=== PATIENT | male | born 1950 | race Caucasian/White ===

== ENCOUNTER 2017-10-30 05:49 | Inpatient (IN) | payer MEDICARE, BC ==
[2017-10-30] MEDS ORDERED: SUGAMMADEX SODIUM 200 MG/2 ML VIAL IV (07:00)
[2017-10-30] MEDS ORDERED: METOPROLOL 5 MG INJ (07:00)
[2017-10-30] MEDS ORDERED: HEPARIN 1000 UNITS/NS (A-LINE) 0 ML (07:05)
[2017-10-30] MEDS ORDERED: IOHEXOL 300MG/ML 30 ML BTL (07:22)
[2017-10-30] MEDS ORDERED: FENTAnyl 50 MCG/ML VIAL ×2 (07:33→08:55)
[2017-10-30] MEDS ORDERED: MIDAZOLAM 1 MG/ML 2 ML INJ (07:34)
[2017-10-30] MEDS ORDERED: PROPOFOL 20 ML (07:35)
[2017-10-30] MEDS ORDERED: SUCCINYLCHOLINE CHLORIDE 100 MG/5 ML SYG IV (07:35)
[2017-10-30] MEDS ORDERED: LIDOCAINE 100 MG SYRINGE (07:38)
[2017-10-30] MEDS ORDERED: ROCURONIUM 50 MG INJ (07:53)
[2017-10-30] MEDS ORDERED: LIDOCAINE 2% (SDV) 5 ML INJ (07:53)
[2017-10-30] MEDS ORDERED: NA BICARBONATE 8.4% 50 ML SYG (07:53)
[2017-10-30] MEDS: HEPARIN 1000 UNITS/ML 10 ML INJ (08:52)
[2017-10-30] MEDS ORDERED: PHENYLephrine (100 MCG/ML) 5ML SYG (09:10)
[2017-10-30] MEDS ORDERED: HEPARIN 1000 UNITS/ML 10 ML INJ (09:22)
[2017-10-30] MEDS ORDERED: hydrALAzine 20 MG INJ (09:23)
[2017-10-30] MEDS: IOHEXOL 300MG/ML 150 ML BTL (09:45)
[2017-10-30] MEDS ORDERED: PROVENTIL HFA 6.7GM INHALER (10:46)
[2017-10-30] MEDS ORDERED: ALBUTEROL 0.083% (NEB) 2.5 MG/3 ML AMP (10:48)
[2017-10-30] MEDS ORDERED: hydrALAzine 20 MG INJ IV (12:30)
[2017-10-30] MEDS ORDERED: LORATADINE 10 MG TAB PO (14:30)
[2017-10-30] MEDS ORDERED: GLUCAGON 1 MG INJ IM (15:30)
[2017-10-30] MEDS ORDERED: DEXTROSE 50% 50 ML SYRINGE IV ×2 (15:30)
[2017-10-30] MEDS ORDERED: GLUCOSE GEL 15 GRAM TUBE BUCCAL (15:30)
[2017-10-30] MEDS ORDERED: GLUCOSE GEL 15 GRAM TUBE PO ×2 (15:30)
[2017-10-30] MEDS: morphine LIQ (10 MG/5 ML) CUP PO (15:31)
[2017-10-30] MEDS: INSULIN ASPART [NOVOLOG] 3 ML PEN SC ×2 (17:35→21:00)
[2017-10-30] MEDS: ACETAMINOPHEN 325 MG TAB PO (18:34)
[2017-10-30 19:02] LABS: ADD MAN DIFF? NO
[2017-10-30 19:06] LABS: BASOPHIL # 0.1 10^3/ul (0.0-0.1); BASOPHILS % 0.6 % (0.0-2.0); EOSINOPHILS # 0.1 10^3/ul (0.0-0.5); EOSINOPHILS % 0.7 % (0.0-7.0); HEMATOCRIT 42.3 % (42.0-52.0); HEMOGLOBIN 14.2 g/dl (14.0-18.0); LYMPHOCYTES # 1.1 10^3/ul (0.8-2.9); LYMPHOCYTES % 10.5 % (15.0-51.0); MEAN CORPUSCULAR HGB CONC 33.6 g/dl (32.0-37.0); MEAN CORPUSCULAR VOLUME 80.6 fl (82.0-101.0); MEAN PLATELET VOLUME 9.7 fl (7.4-10.4); MONOCYTE # 0.5 10^3/ul (0.3-0.9); MONOCYTES % 4.5 % (0.0-11.0); NEUTROPHIL # 8.8 10^3/ul (1.6-7.5); PLATELET COUNT 174 10^3/UL (140-415); RED BLOOD COUNT 5.25 10^6/ul (4.70-6.10); RED CELL DISTRIBUTION WIDTH 15.8 % (11.5-14.5)
[2017-10-30 19:06] LABS: WHITE BLOOD COUNT 10.6 10^3/ul (4.8-10.8)
[2017-10-30 19:23] LABS: ALANINE AMINOTRANSFERASE 41 IU/L (13-69); ALBUMIN 4.3 g/dl (3.3-4.9); ALBUMIN/GLOBULIN RATIO 1.65; ALKALINE PHOSPHATASE 57 IU/L (42-121); ANION GAP 14 (8-16); ASPARTATE AMINO TRANSFERASE 27 IU/L (15-46); BILIRUBIN,INDIRECT 0.3 mg/dl (0-1.1); BILIRUBIN,TOTAL 0.3 mg/dl (0.2-1.3); BLOOD UREA NITROGEN 10 mg/dl (7-20); CALCIUM 8.7 mg/dl (8.4-10.2); CARBON DIOXIDE 24 mmol/L (21-31); CHLORIDE 104 mmol/L (97-110); CREATININE 0.58 mg/dl (0.61-1.24); GLUCOSE 129 mg/dl (70-220); POTASSIUM 3.8 mmol/L (3.5-5.1); SODIUM 138 mmol/L (135-144); TOTAL PROTEIN 6.9 g/dl (6.1-8.1)
[2017-10-30] MEDS: metFORMIN 500 MG TAB PO (20:42)
[2017-10-30] MEDS: CYCLOBENZAPRINE 10 MG TAB PO (20:58)
[2017-10-30] MEDS: PANTOPRAZOLE 40 MG INJ IV (20:58)
[2017-10-31] MEDS ORDERED: ATROPINE 1 MG/10 ML SYRINGE (00:57)
[2017-10-31] MEDS: morphine LIQ (10 MG/5 ML) CUP PO ×2 (01:51→09:57)
[2017-10-31] MEDS: ACCU-CHEK XX (02:00)
[2017-10-31 05:55] LABS: ADD MAN DIFF? NO
[2017-10-31 05:59] LABS: WHITE BLOOD COUNT 8.5 10^3/ul (4.8-10.8)
[2017-10-31 05:59] LABS: BASOPHIL # 0.1 10^3/ul (0.0-0.1); BASOPHILS % 0.6 % (0.0-2.0); EOSINOPHILS # 0.3 10^3/ul (0.0-0.5); EOSINOPHILS % 3.3 % (0.0-7.0); HEMATOCRIT 37.3 % (42.0-52.0); HEMOGLOBIN 12.6 g/dl (14.0-18.0); LYMPHOCYTES # 1.4 10^3/ul (0.8-2.9); LYMPHOCYTES % 15.8 % (15.0-51.0); MEAN CORPUSCULAR HEMOGLOBIN 27.2 pg (29.0-33.0); MEAN CORPUSCULAR HGB CONC 33.8 g/dl (32.0-37.0); MEAN CORPUSCULAR VOLUME 80.6 fl (82.0-101.0); MEAN PLATELET VOLUME 10.4 fl (7.4-10.4); MONOCYTE # 0.7 10^3/ul (0.3-0.9); MONOCYTES % 7.6 % (0.0-11.0); NEUTROPHIL # 6.2 10^3/ul (1.6-7.5); NEUTROPHILS % 72.3 % (39.0-77.0); PLATELET COUNT 151 10^3/UL (140-415); RED BLOOD COUNT 4.63 10^6/ul (4.70-6.10)
[2017-10-31] MEDS: PANTOPRAZOLE 40 MG INJ IV (06:25)
[2017-10-31 07:18] LABS: ANION GAP 14 (8-16); BLOOD UREA NITROGEN 11 mg/dl (7-20); CALCIUM 8.3 mg/dl (8.4-10.2); CARBON DIOXIDE 25 mmol/L (21-31); CHLORIDE 102 mmol/L (97-110); CREATININE 0.57 mg/dl (0.61-1.24); GLUCOSE 126 mg/dl (70-220); POTASSIUM 3.5 mmol/L (3.5-5.1); SODIUM 137 mmol/L (135-144)
[2017-10-31] MEDS: INSULIN ASPART [NOVOLOG] 3 ML PEN SC ×4 (07:35→21:00)
[2017-10-31] MEDS: metFORMIN 500 MG TAB PO ×2 (07:35→17:35)
[2017-10-31] MEDS: LISINOPRIL 20 MG TAB PO (09:00)
[2017-10-31] MEDS: FLUTICASONE 0.05% 16 GM NAS SPRAY NASAL (09:10)
[2017-10-31] MEDS: ASPIRIN 81 MG TAB PO (09:11)
[2017-10-31] MEDS: FINASTERIDE 5 MG TAB PO (09:11)
[2017-10-31] MEDS: AMLODIPINE 5 MG TAB PO (09:12)
[2017-10-31] MEDS: DOCUSATE SODIUM 100 MG CAP PO (17:32)
[2017-10-31] MEDS: ACETAMINOPHEN 325 MG TAB PO (19:42)
[2017-10-31] MEDS ORDERED: PANTOPRAZOLE 40 MG INJ IV (21:00)
[2017-10-31] MEDS: IBUPROFEN 600 MG TAB PO (21:43)
[2017-10-31] MEDS: CYCLOBENZAPRINE 10 MG TAB PO (23:13)
[2017-11-01] MEDS: ACCU-CHEK XX (01:43)
[2017-11-01] MEDS: PANTOPRAZOLE 40 MG INJ IV (06:01)
[2017-11-01] MEDS: INSULIN ASPART [NOVOLOG] 3 ML PEN SC ×3 (08:00→17:17)
[2017-11-01] MEDS: FLUTICASONE 0.05% 16 GM NAS SPRAY NASAL (08:56)
[2017-11-01] MEDS: ASPIRIN 81 MG TAB PO (08:56)
[2017-11-01] MEDS: FINASTERIDE 5 MG TAB PO (08:57)
[2017-11-01] MEDS: metFORMIN 500 MG TAB PO ×2 (08:57→17:17)
[2017-11-01] MEDS: AMLODIPINE 5 MG TAB PO (08:57)
[2017-11-01] MEDS: LISINOPRIL 20 MG TAB PO (08:57)
[2017-11-01] MEDS: morphine LIQ (10 MG/5 ML) CUP PO (17:17)
[2017-11-02] MEDS ORDERED: INFLUENZA VIRUS VACCINE 0.5 ML (DISPENSING) IM* (09:00)
== END 2017-11-01 18:31 | disposition home or self-care (01) | DRG 269 ==
LOC: REC 05:49 → MS4 10-31 21:00 → ICU 11:30
PROVIDERS: Thoracic Surgery (Cardiothoracic Vascular Surgery)
PROC: 04V03DZ Restriction of Abdominal Aorta with Intraluminal Device, Percutaneous Approach (ICD-10-PCS; principal; 2017-10-30 07:30)
PROC: B410ZZZ Fluoroscopy of Abdominal Aorta (ICD-10-PCS; 2017-10-30 07:30)
DX: I72.3 Aneurysm of iliac artery (principal); E11.9 Type 2 diabetes mellitus without complications; I71.4 Abdominal aortic aneurysm, without rupture; E78.5 Hyperlipidemia, unspecified; J45.909 Unspecified asthma, uncomplicated; N40.0 Benign prostatic hyperplasia without lower urinary tract symptoms; Z87.891 Personal history of nicotine dependence
CPT/HCPCS: 71045; 75630; 80048; 80053; 82962; 85025; 86850; 86900; 86901; 86920; 87081

== ENCOUNTER 2018-12-22 03:19 | Emergency (ER) | payer MEDICARE, BC ==
[2018-12-22 03:51] LABS: ADD MAN DIFF? NO
[2018-12-22 04:09] LABS: BASOPHILS % 0.7 % (0.0-2.0); EOSINOPHILS # 0.2 10^3/ul (0.0-0.5); EOSINOPHILS % 3.3 % (0.0-7.0); HEMATOCRIT 40.8 % (42.0-52.0); INR 0.86; LYMPHOCYTES # 1.7 10^3/ul (0.8-2.9); LYMPHOCYTES % 27.5 % (15.0-51.0); MEAN CORPUSCULAR HEMOGLOBIN 23.1 pg (29.0-33.0); MEAN CORPUSCULAR HGB CONC 31.9 g/dl (32.0-37.0); MEAN CORPUSCULAR VOLUME 72.5 fl (82.0-101.0); MEAN PLATELET VOLUME 9.4 fl (7.4-10.4); MONOCYTE # 0.6 10^3/ul (0.3-0.9); MONOCYTES % 10.1 % (0.0-11.0); NEUTROPHIL # 3.5 10^3/ul (1.6-7.5); NEUTROPHILS % 57.6 % (39.0-77.0); PLATELET COUNT 242 10^3/UL (140-415); PROTIME 11.8 Sec (11.9-14.9); PT RATIO 0.9; RED BLOOD COUNT 5.63 10^6/ul (4.70-6.10); RED CELL DISTRIBUTION WIDTH 17.9 % (11.5-14.5)
[2018-12-22 04:10] LABS: ALANINE AMINOTRANSFERASE 31 IU/L (13-69); ALBUMIN 4.4 g/dl (3.3-4.9); ALBUMIN/GLOBULIN RATIO 1.76; ALKALINE PHOSPHATASE 101 IU/L (42-121); ANION GAP 11 (5-13); ASPARTATE AMINO TRANSFERASE 28 IU/L (15-46); BILIRUBIN,INDIRECT 0.1 mg/dl (0-1.1); BILIRUBIN,TOTAL 0.1 mg/dl (0.2-1.3); BLOOD UREA NITROGEN 15 mg/dl (7-20); CALCIUM 9.4 mg/dl (8.4-10.2); CARBON DIOXIDE 26 mmol/L (21-31); CHLORIDE 98 mmol/L (97-110); CREATININE 0.58 mg/dl (0.61-1.24); Estimated GFR > 60 mL/min (>60); GLUCOSE 172 mg/dl (70-220); POTASSIUM 4.1 mmol/L (3.5-5.1); SODIUM 135 mmol/L (135-144); TOTAL PROTEIN 6.9 g/dl (6.1-8.1)
[2018-12-22 04:22] LABS: B-TYPE NATRIURETIC PEPTIDE 27 PG/ML (0-125); TROPONIN-I < 0.012 ng/ml (0.000-0.120)
[2018-12-22] MEDS: ONDANSETRON 4 MG INJ IV (04:55)
[2018-12-22] MEDS: morphine 4 MG/ML VIAL IV (04:55)
== END 2018-12-22 05:40 | disposition home or self-care (01) ==
LOC: E/R 03:19
DX: R10.9 Unspecified abdominal pain (principal); R11.0 Nausea; I10 Essential (primary) hypertension; J45.909 Unspecified asthma, uncomplicated; E11.9 Type 2 diabetes mellitus without complications; Z79.82 Long term (current) use of aspirin; Z79.84 Long term (current) use of oral hypoglycemic drugs; Z87.891 Personal history of nicotine dependence
CPT/HCPCS: 36415; 71045; 74176; 80053; 83880; 84484; 85025; 85610; 93005; 96374; 96375; 99285-25

== ENCOUNTER 2019-04-07 16:02 | Emergency (ER) | payer MEDICARE, BC ==
[2019-04-07 17:54] LABS: ADD MAN DIFF? NO
[2019-04-07 17:56] LABS: URINE BLOOD (Dip) POC Trace-lysed (NEGATIVE); URINE GLUCOSE (Dip) POC Negative (NEGATIVE); URINE KETONES (Dip) POC Trace (NEGATIVE); URINE LEUKOCYTE EST (Dip) POC Negative (NEGATIVE); URINE NITRITE (Dip) POC Negative (NEGATIVE); URINE TOTAL PROTEIN POC 1+ (NEGATIVE)
[2019-04-07 17:58] LABS: WHITE BLOOD COUNT 8.3 10^3/ul (4.8-10.8)
[2019-04-07 17:58] LABS: BASOPHIL # 0.1 10^3/ul (0.0-0.1); BASOPHILS % 0.7 % (0.0-2.0); EOSINOPHILS % 0.4 % (0.0-7.0); HEMATOCRIT 42.7 % (42.0-52.0); HEMOGLOBIN 13.5 g/dl (14.0-18.0); LYMPHOCYTES # 1.9 10^3/ul (0.8-2.9); LYMPHOCYTES % 23.1 % (15.0-51.0); MEAN CORPUSCULAR HEMOGLOBIN 22.5 pg (29.0-33.0); MEAN CORPUSCULAR HGB CONC 31.6 g/dl (32.0-37.0); MONOCYTE # 0.7 10^3/ul (0.3-0.9); NEUTROPHIL # 5.6 10^3/ul (1.6-7.5); NEUTROPHILS % 67.2 % (39.0-77.0); PLATELET COUNT 239 10^3/UL (140-415); RED BLOOD COUNT 6.01 10^6/ul (4.70-6.10); RED CELL DISTRIBUTION WIDTH 19.1 % (11.5-14.5)
[2019-04-07] MEDS: ONDANSETRON 4 MG INJ IV (18:07)
[2019-04-07] MEDS: SOD CHLORIDE 0.9% 1,000 ML IV (18:08)
[2019-04-07 18:16] LABS: ALANINE AMINOTRANSFERASE 49 IU/L (13-69); ALBUMIN 4.5 g/dl (3.3-4.9); ALKALINE PHOSPHATASE 44 IU/L (42-121); ANION GAP 12 (5-13); ASPARTATE AMINO TRANSFERASE 40 IU/L (15-46); BILIRUBIN,INDIRECT 0.5 mg/dl (0-1.1); BILIRUBIN,TOTAL 0.5 mg/dl (0.2-1.3); BLOOD UREA NITROGEN 9 mg/dl (7-20); CALCIUM 9.3 mg/dl (8.4-10.2); CARBON DIOXIDE 25 mmol/L (21-31); CHLORIDE 97 mmol/L (97-110); CREATININE 0.58 mg/dl (0.61-1.24); Estimated GFR > 60 mL/min (>60); GLUCOSE 109 mg/dl (70-220); INR 0.95; LIPASE 67 U/L (23-300); POTASSIUM 4.2 mmol/L (3.5-5.1); PROTIME 12.8 Sec (11.9-14.9); SODIUM 134 mmol/L (135-144); TOTAL PROTEIN 7.5 g/dl (6.1-8.1)
[2019-04-07 18:17] LABS: PARTIAL THROMBOPLASTIN TIME 28.6 Sec (23.0-35.0)
[2019-04-07 18:27] LABS: TROPONIN-I < 0.012 ng/ml (0.000-0.120)
[2019-04-07] MEDS: SOD CHLORIDE 0.9% 100 ML (19:37)
[2019-04-07] MEDS: IOHEXOL 300MG/ML 150 ML BTL (19:37)
== END 2019-04-07 20:25 | disposition home or self-care (01) ==
LOC: E/R 16:02
DX: K80.20 Calculus of gallbladder without cholecystitis without obstruction (principal); E11.9 Type 2 diabetes mellitus without complications; I10 Essential (primary) hypertension; J45.909 Unspecified asthma, uncomplicated; R19.7 Diarrhea, unspecified; D64.9 Anemia, unspecified; Z79.84 Long term (current) use of oral hypoglycemic drugs
CPT/HCPCS: 36415; 71045; 74177; 80053; 81003; 83690; 84484; 85025; 85610; 85730; 93005; 96374; 99285-25

== ENCOUNTER 2019-05-26 17:25 | Emergency (ER) | payer MEDICARE, BC ==
[2019-05-26 19:17] LABS: ADD MAN DIFF? NO
[2019-05-26 19:21] LABS: BASOPHILS % 0.4 % (0.0-2.0); EOSINOPHILS % 0.1 % (0.0-7.0); HEMATOCRIT 42.1 % (42.0-52.0); HEMOGLOBIN 13.1 g/dl (14.0-18.0); LYMPHOCYTES # 0.9 10^3/ul (0.8-2.9); LYMPHOCYTES % 9.1 % (15.0-51.0); MEAN CORPUSCULAR HEMOGLOBIN 22.1 pg (29.0-33.0); MEAN CORPUSCULAR HGB CONC 31.1 g/dl (32.0-37.0); MEAN CORPUSCULAR VOLUME 70.9 fl (82.0-101.0); MONOCYTE # 0.5 10^3/ul (0.3-0.9); MONOCYTES % 5.4 % (0.0-11.0); NEUTROPHIL # 8.1 10^3/ul (1.6-7.5); NEUTROPHILS % 84.3 % (39.0-77.0); PLATELET COUNT 258 10^3/UL (140-415); RED BLOOD COUNT 5.94 10^6/ul (4.70-6.10); RED CELL DISTRIBUTION WIDTH 19.6 % (11.5-14.5)
[2019-05-26 19:21] LABS: WHITE BLOOD COUNT 9.7 10^3/ul (4.8-10.8)
[2019-05-26] MEDS: morphine 4 MG/ML VIAL IV (19:28)
[2019-05-26] MEDS: ONDANSETRON 4 MG INJ IV (19:28)
[2019-05-26] MEDS: SOD CHLORIDE 0.9% 1,000 ML IV (19:28)
[2019-05-26 19:38] LABS: ALANINE AMINOTRANSFERASE 45 IU/L (13-69); ALBUMIN 3.9 g/dl (3.3-4.9); ALKALINE PHOSPHATASE 65 IU/L (42-121); ANION GAP 11 (5-13); ASPARTATE AMINO TRANSFERASE 34 IU/L (15-46); BILIRUBIN,INDIRECT 0.8 mg/dl (0-1.1); BILIRUBIN,TOTAL 0.8 mg/dl (0.2-1.3); BLOOD UREA NITROGEN 9 mg/dl (7-20); CARBON DIOXIDE 23 mmol/L (21-31); CHLORIDE 95 mmol/L (97-110); CREATININE 0.57 mg/dl (0.61-1.24); Estimated GFR > 60 mL/min (>60); GLUCOSE 153 mg/dl (70-220); LIPASE 98 U/L (23-300); POTASSIUM 3.7 mmol/L (3.5-5.1); SODIUM 129 mmol/L (135-144); TOTAL PROTEIN 6.9 g/dl (6.1-8.1)
[2019-05-26 20:20] LABS: ADD UMIC NO; UR ASCORBIC ACID NEGATIVE (NEGATIVE); UR BILIRUBIN (Dip) NEGATIVE (NEGATIVE); UR BLOOD (Dip) NEGATIVE (NEGATIVE); UR CLARITY CLEAR (CLEAR); UR COLOR YELLOW (YELLOW); UR GLUCOSE (Dip) 2+ mg/dL (NEGATIVE); UR KETONES (Dip) 1+ mg/dL (NEGATIVE); UR LEUKOCYTE ESTERASE (Dip) NEGATIVE Leu/ul (NEGATIVE); UR NITRITE (Dip) NEGATIVE (NEGATIVE); UR SPECIFIC GRAVITY (Dip) 1.015 (1.003-1.030); UR TOTAL PROTEIN (Dip) NEGATIVE (NEGATIVE); UR UROBILINOGEN (Dip) NEGATIVE (NEGATIVE)
[2019-05-26] MEDS: KETOROLAC 30 MG INJ IV (20:57)
== END 2019-05-26 21:30 | disposition home or self-care (01) ==
LOC: E/R 17:25
DX: R10.11 Right upper quadrant pain (principal); I10 Essential (primary) hypertension; E11.9 Type 2 diabetes mellitus without complications; J45.909 Unspecified asthma, uncomplicated; Z79.84 Long term (current) use of oral hypoglycemic drugs
CPT/HCPCS: 36415; 71045; 74176; 76705; 80053; 81003; 83690; 85025; 93005; 96374; 96375; 99285-25